=== PATIENT | female | born 1965 | race Caucasian/White ===

== ENCOUNTER 2019-03-25 05:26 | Emergency (ER) | payer BC, SELFPAY ==
[2019-03-25 05:27] VITALS: BP 180/82; PULSE 89; RESP 18; TEMP 36.7; O2SAT 100; BMI 36.5
--- NOTE | 2019-03-25 05:33 | ED.VIS.GEN ---
History of Present Illness Chief Complaint: Allergic Reaction Informant: Patient Narrative: Stated she has a severe wheat allergy as well as gluten hypersensitivity. She thinks the holiday dinners cross contaminated food. Since last night she has been feeling nauseous. She has had some diarrhea. Patient stated that she thinks her lips are slightly big. She took some Pepcid last night. She took Benadryl twice including when she woke up this morning approximately an hour ago. She is not having any difficulty breathing. She has had this happen before. Current severity is mild. Past Medical History - Allergies and Home Meds Allergies/Adverse Reactions: Allergies erythromycin base Allergy (Verified 03/25/19 05:32) Hives Sulfa (Sulfonamide Antibiotics) Allergy (Verified 03/25/19 05:32) Hives wheat Allergy (Verified 03/25/19 05:31) Swelling Primary Care Physician: Noelle Shelton MD [Primary Care Provider] - Prior records reviewed: Yes Past Medical History: - - Gluten hypersensitivity Surgical History: noncontributory Lives: With Family Smoking Status: Never smoker Alcohol: None Drugs: None Review of Systems General: Denies: Chills, Fever, Sweats Eyes: Denies: Visual changes - bilaterally, Diplopia ENT: Denies: Rhinorrhea, Sore throat Cardiovascular: Denies: Chest pain, Palpitations Respiratory: Denies: Dyspnea, Cough, Dyspnea on exertion Gastrointestinal: Reports: Nausea, Diarrhea. Denies: Abdominal pain, Vomiting, Melena, Hematochezia Genitourinary: Denies: Dysuria, Hematuria, Frequency Musculoskeletal: Denies: Back pain, Extremity Pain Skin: Denies: Rash, Wounds Neurological: Denies: Headache, Weakness, Numbness Physical Exam Vital Signs/Narrative: Vital Signs Temp Pulse Resp BP Pulse Ox 03/25/19 05:27 98.0 F 89 18 180/82 H 100 General: Well nourished, Well developed, No Acute Distress Head: Normocephalic, Atraumatic Eyes: Perrl, EOMI ENT: Moist mucous membranes, No rhinorrhea Neck: Supple, Nontender Cardiovascular: Regular rate, Regular rhythm, No murmurs Respiratory: No distress, CTA bilaterally, Chest nontender Abdomen: Soft, Nontender, Nondistended, Normal bowel sounds Back: Nontender, Normal Inspection Extremities: Nontender, No edema Skin: Normal color, No rash Neurological: Alert, Oriented x3, Cranial nerves II-XII grossly intact, Normal Strength, Normal Sensation Psychological: Normal affect, Normal Mood Diagnostic/Tx/Re-eval - Medical Decision Making Patient is having a mild reaction in my opinion to wheat or gluten. Given Zofran. She already took Benadryl and Pepcid lungs are clear without wheezing. She is having no respiratory difficulty. I do not feel she needs a breathing treatment or epinephrine. Patient felt much better after treatment. Given Zofran for nausea and time. She will be discharged with Zofran and will continue to monitor ED Disposition - Plan for ED Patient: Disposition: Home or Assisted Living Diagnosis: Food allergy Instructions: ALLERGIC REACTION, Other (General) Prescriptions: Ondansetron [Zofran Odt] 4 mg PO Q8H PRN PRN #10 tab PRN Reason: Nausea Prescription Printed Referrals: Noelle Shelton MD [Primary Care Provider] -
[2019-03-25] MEDS: Ondansetron ODT 4 MG Tablet 8 MG PO ×2 (05:38→06:58)
[2019-03-25 05:40] VITALS: BP 161/80
[2019-03-25 07:00] VITALS: BP 138/72; PULSE 78; RESP 16; O2SAT 97
== END 2019-03-25 07:01 | disposition home or self-care (01) ==
PROVIDERS: Emergency Provider Emergency Medicine; Family Provider Internal Medicine; PCP Internal Medicine
DX: T78.1XXA Other adverse food reactions, not elsewhere classified, initial encounter (principal); R11.0 Nausea; X58.XXXA Exposure to other specified factors, initial encounter
CPT/HCPCS: 99283

== ENCOUNTER 2021-03-19 16:39 | Outpatient (CLI) | payer BC, SELFPAY ==
[2021-03-19 16:50] VITALS: BP 157/87; PULSE 92; RESP 16; TEMP 36.8; O2SAT 100; BMI 34.9
[2021-03-19] MEDS: 0.9% Saline Lock 10 ML Syringe IV (16:53)
[2021-03-19 17:25] VITALS: BP 145/81; PULSE 82; RESP 16; TEMP 37; O2SAT 100
[2021-03-19 18:25] VITALS: BP 132/63; PULSE 80; RESP 16; TEMP 36.9; O2SAT 100
== END 2021-03-19 18:43 | disposition home or self-care (01) ==
LOC: MS3OUT 16:40 → MS3 16:40
PROVIDERS: PCP Internal Medicine; Referring Provider Nurse Practitioner Adult Health; Visit Provider Nurse Practitioner Adult Health
DX: Z23 Encounter for immunization (principal); U07.1 COVID-19
CPT/HCPCS: J7050; M0245; Q0245; A4216

== ENCOUNTER 2021-08-17 19:32 | Emergency (ER) | payer BC, SELFPAY ==
[2021-08-17 19:33] VITALS: BP 156/83; PULSE 94; RESP 16; TEMP 37.2; O2SAT 99; BMI 34.4
--- NOTE | 2021-08-17 19:45 | EKG12_ITS ---
Test Reason : PALPITATIONS Blood Pressure : / mmHG Vent. Rate : 088 BPM Atrial Rate : 088 BPM P-R Int : 178 ms QRS Dur : 134 ms QT Int : 406 ms P-R-T Axes : 045 -47 037 degrees QTc Int : 491 ms Normal sinus rhythm Right bundle branch block Left anterior fascicular block Bifascicular block Voltage criteria for left ventricular hypertrophy Abnormal ECG Confirmed by MATEO MATA, GERI ([id number]), video tape editor RAYMOND HALL ([id number]) on 08/19/2021 1:05:14 PM Referred By: FERNANDA Confirmed By:GERI GALINDO MD
[2021-08-17 20:00] VITALS: BP 168/92; PULSE 89; RESP 14; O2SAT 98
--- NOTE | 2021-08-17 20:15 | EX.ED.DYSGE1 ---
HPI History of Present Illness Chief Complaint: Palpitations Informant: patient Onset/Context/Timing Onset: Yesterday Context: Gradual Onset Timing: Waxes and wanes Quality: Racing, pounding Location: Chest Worsened by: Nothing Relieved by: Nothing Narrative Narrative: Patient presents with palpitations that have been waxing and waning throughout the day today. Patient states it actually began last night. Patient states she feels her heart is racing and pounding at times. Patient states nothing makes it better nothing makes it worse. Patient admits to recent travel to [place] in [place] where she did a lot of walking. Patient denies any shortness of breath or cough. Patient denies any fevers or chills a COVID-19 test at home today which was negative. [facility] Medical History (Updated 08/17/21 @ 22:[address] Eben Jesus, ) Cardiomyopathy Diabetes Hypertension Home Medications Coreg 1.5 tab PO BID 05/15/13 [History Last Taken Unknown] levothyroxine 100 mcg PO DAILY 05/15/13 [History Last Taken Unknown] metformin 500 mg PO TIDCM 05/15/13 [History Last Taken Unknown] Omeprazole [Prilosec] 40 mg PO BID 08/07/14 [History Last Taken Unknown] Propylene Glycol/Peg 400/Pf [Systane Ultra 0.4-0.3% Eye Drp] 1 drp EACH EYE PRN PRN 08/07/14 [History Last Taken Unknown] calcium carbonate 500 mg PO DAILY@0800 08/07/14 [History Last Taken Unknown] cholecalciferol (vitamin D3) [Vitamin D3] 2,000 unit PO DAILY 08/07/14 [History Last Taken Unknown] furosemide 20 mg PO DAILY PRN 08/07/14 [History Last Taken Unknown] lorazepam 0.5 mg PO DAILY PRN 08/07/14 [History Last Taken Unknown] ofloxacin 2 drp OTIC (EAR) 4X/DAY PRN 08/07/14 [History Last Taken Unknown] potassium chloride [K-Dur] 20 meq PO DAILY 08/07/14 [History Last Taken Unknown] ramipril 1.25 mg PO DAILY 08/07/14 [History Last Taken Unknown] tizanidine 2 mg PO Q8H 08/07/14 [History Last Taken Unknown] ondansetron 4 mg PO Q8H PRN PRN #10 tab 03/25/19 [Rx Last Taken Unknown] albuterol 180 mcg INHALATION Q4H PRN 03/19/21 [History Last Taken Unknown] epinephrine [Epi E-Z Pen] 0.3 mg IM Q4H PRN 03/19/21 [History Last Taken Unknown] ergocalciferol (vitamin D2) [Vitamin D2] 1,250 mcg PO QWEEK 03/19/21 [History Last Taken Unknown] ferrous gluconate 324 mg PO DAILY 03/19/21 [History Last Taken Unknown] hydroxyzine HCl 25 mg PO Q6H PRN 03/19/21 [History Last Taken Unknown] magnesium 30 mg PO BID 03/19/21 [History Last Taken Unknown] pantoprazole 40 mg PO DAILY 03/19/21 [History Last Taken Unknown] Allergy/AdvReac Type Severity Reaction Status Date / Time nut - unspecified Allergy Severe Anaphylaxis Verified 08/17/21 19:33 barley Allergy Food Verified 08/17/21 19:33 Allergy erythromycin base Allergy Hives Verified 08/17/21 19:33 gluten Allergy Food Verified 08/17/21 19:33 Allergy green pepper Allergy Food Verified 08/17/21 19:33 Allergy kiwi Allergy Food Verified 08/17/21 19:33 Allergy latex Allergy unknown Verified 08/17/21 19:33 pecan nut Allergy Food Verified 08/17/21 19:33 Allergy pineapple Allergy Food Verified 08/17/21 19:33 Allergy Sulfa (Sulfonamide Allergy Hives Verified 08/17/21 19:33 Antibiotics) sulfamethoxazole Allergy Angioedema Verified 08/17/21 19:33 [From Bactrim] trimethoprim [From Bactrim] Allergy Angioedema Verified 08/17/21 19:33 walnut Allergy Food Verified 08/17/21 19:33 Allergy watermelon Allergy Food Verified 08/17/21 19:33 Allergy wheat Allergy Swelling Verified 08/17/21 19:33 rye Allergy Food Uncoded 08/17/21 19:33 Allergy sorgum Allergy Hives Uncoded 08/17/21 19:33 Surgical History (Updated 08/17/21 @ 20:[address] Eben Jesus, DO) H/O bilateral mastectomy H/O section Hx of cholecystectomy Hx of thyroidectomy Social History Smoking Status: Never smoker ROS ROS ED Constitutional Constitutional ED: Denies chills or fever(s) Eyes Eyes: Denies blurry vision or change in vision ENT ENT ED: Denies rhinorrhea or sore throat Cardiovascular Cardiovascular: Denies chest pain or palpitations Respiratory/Chest Respiratory/Chest: Denies cough or dyspnea Gastrointestinal Gastrointestinal: Denies nausea or vomiting Genitourinary Genitourinary ED: Denies dysuria or hematuria Musculoskeletal Musculoskeletal: Denies back pain or neck pain Integumentary Denies abscess or rash Neurologic Neurologic: Denies headache(s) or weakness Allergic/Immunologic Allergic/Immunologic ED: Denies mouth swelling or urticaria EXAM Physical Exam Const Vital Signs: 08/17/21 19:33 08/17/21 19:50 Temperature 98.9 F Temperature Source Temporal Pulse Rate 94 Respiratory Rate 16 Respiratory Effort Normal Non-Labored Respiratory Pattern Normal Blood Pressure 156/83 H Blood Pressure Mean 107 Pulse Ox 99 Oxygen Delivery Method Room Air Positive well nourished and well developed General Appearance ED: well developed HEENT Reports moist mucous membranes Neck supple and no JVD Resp normal respiratory effort and clear to auscultation bilaterally Cardio regular rate, regular rhythm and no murmurs GI normal to inspection, nondistended, normoactive bowel sounds and non-tender Palpation: soft Extremity General Extremety ED: Yes edema; Negative for tenderness General Extremity: edema Neuro oriented x3, CN's II-XII intact bilaterally and no sensory deficits noted Sensorium / Orientation: alert Motor Exam: strength 5/5 throughout Psych mental status grossly normal Skin no rashes or lesions noted MDM MDM MDM Narrative Medical decision making narrative: EKG was obtained. On my interpretation shows normal sinus rhythm with a rate of 88. There is a right bundle branch block pattern noted. There is a left anterior fascicular block pattern noted. There is left axis deviation -47. There are no acute ST or T wave changes. Portable 1 view chest x-ray was obtained. On my interpretation, lung denny are clear. There is normal cardiac silhouette. Bony thorax is normal. There is no acute process noted. Radiologist also interpreted the x-ray and agrees. CBC was within normal limits. Comprehensive metabolic profile was essentially within normal limits. High-sensitivity troponin was less than 3. D-dimer was elevated at 1.36. Because of this, CTA of the chest was obtained. There is no evidence of pulmonary embolism or aortic dissection. This was interpreted by the radiologist and reviewed by myself. Lab Data Attestation: I reviewed the patient's lab results. Labs: Laboratory Results - last 24 hr 08/17/21 08/17/21 08/17/21 20:10 20:10 20:10 WBC 4.6 RBC 4.00 L Hgb 11.5 L Hct 35.0 L MCV 87.5 MCH 28.8 MCHC 32.9 RDW Std Deviation 43.1 RDW Coeff of Fannie 13.4 Plt Count 128 L MPV 9.9 Immature Gran % (Auto) 0.200 Neut % (Auto) 72.2 H Lymph % (Auto) 19.1 Whitman % (Auto) 6.6 Eos % (Auto) 1.5 Baso % (Auto) 0.4 Absolute Neuts (auto) 3.3 Absolute Lymphs (auto) 0.87 Nucleated RBC % 0 D-Dimer Quant (PE/DVT) 1.36 H* Sodium 141 Potassium 3.8 Chloride 109 H Carbon Dioxide 26.0 Anion Gap 6 BUN 9 Creatinine 0.74 Estim Creat Clear Calc 65.54 Est GFR (MDRD) Af Amer 103 Est GFR (MDRD) Non-Af 85 BUN/Creatinine Ratio 12.1 Glucose 110 H Calcium 9.0 Total Bilirubin 0.60 AST 32 ALT 39 Alkaline Phosphatase 69 Troponin I High Sens < 3 L Total Protein 7.6 Albumin 3.5 Globulin 4.1 Albumin/Globulin Ratio 0.9 Radiography Chest X-Ray - ED: 1 View, Read by ED Physician, Read by Radiologist and No Acute Disease Diagnostic Testing: Clinical Impression(s) from Imaging Studies Chest X-Ray 08/17/21 20:25 IMPRESSION: No radiographic evidence of acute cardiopulmonary disease. Electronically Signed: Adelso Carranza MD at 20:51 EDT Reading Location ID and State: [facility] / [place] Tel , Service support , Chest CTA 08/17/21 20:51 IMPRESSION: Normal CTA chest examination, without a demonstrated pulmonary embolism or arterial dissection. Patchy bilateral airspace disease consistent with infection including atypical or viral pneumonia in the appropriate clinical setting. Electronically Signed: Adelso Carranza MD at 21:44 EDT Reading Location ID and State: [facility] / [place] Tel , Service support , EKG Initial EKG: Attestation: I personally reviewed and interpreted this EKG as follows: Interpretation: Sinus Rhythm (88), No Acute Injury Pattern, RBBB and LBBB Prior EKG tracings: not available for review Prior: No Prior Discharge Plan Triage Chief Complaint: Palpitations ED Provider: Eben Jesus Dx/Rx/DC Orders Clinical Impression: Chest pain, Heart palpitations Instructions: ED Chest Pain, Uncertain Cause, ED Palpitations Prescriptions: No Action metformin 500 MG tablet 500 mg PO TIDCM RF: 0 levothyroxine 100 MCG tablet 100 mcg PO DAILY RF: 0 Coreg 1.5 tab PO BID RF: 0 tizanidine 2 MG tablet 2 mg PO Q8H RF: 0 ofloxacin 1 DROP bottle 2 drp otic (ear) 4X/DAY PRN (Reason: other) RF: 0 potassium chloride [Klor-Con M20] 20 MEQ tablet 20 meq PO DAILY RF: 0 lorazepam 0.5 MG tablet 0.5 mg PO DAILY PRN (Reason: Anxiety) RF: 0 calcium carbonate 500 MG tablet 500 mg PO DAILY@0800 RF: 0 furosemide 20 MG tablet 20 mg PO DAILY PRN (Reason: swelling) RF: 0 ramipril 1.25 MG capsule 1.25 mg PO DAILY RF: 0 cholecalciferol (vitamin D3) [Vitamin D3] 1,000 UNIT tablet 2,000 unit PO DAILY RF: 0 Omeprazole [Prilosec] 40 MG capsule 40 mg PO BID RF: 0 Propylene Glycol/Peg 400/Pf [Systane Ultra 0.4-0.3% Eye Drp] 1 EACH [place] 1 drp Each Eye PRN PRN (Reason: Dry Eye) RF: 0 ondansetron 4 MG tablet 4 mg PO Q8H PRN PRN (Reason: Nausea) Qty: 10 RF: 0 pantoprazole 40 mg Tablet,Delayed Release (Dr/Ec) 40 mg PO DAILY RF: 0 hydroxyzine HCl 25 mg Tablet 25 mg PO Q6H PRN (Reason: Itching) RF: 0 albuterol 90 mcg/actuation Aerosol 180 mcg inhalation Q4H PRN (Reason: Shortness Of Breath) RF: 0 ergocalciferol (vitamin D2) [Vitamin D2] 1,250 mcg (50,000 unit) Capsule 1,250 mcg PO QWEEK RF: 0 epinephrine [Epi E-Z Pen] 0.3 mg/0.3 mL Auto-Injector 0.3 mg IM Q4H PRN (Reason: Anaphylaxis) RF: 0 magnesium 30 mg Tablet 30 mg PO BID RF: 0 ferrous gluconate 324 mg (37.5 mg iron) Tablet 324 mg PO DAILY RF: 0 Primary Care Provider: Noelle Shelton Referrals: Noelle Shelton MD [Primary Care Provider] - 3-5 Days Disposition Disposition: Home, Self Care
--- NOTE | 2021-08-17 20:25 | RAD_ITS ---
INDICATION: Chest pain EXAMINATION/TECHNIQUE: X-RAY - portable upright AP chest x-ray COMPARISON: None. FINDINGS: LINES/DEVICES: None. LUNGS: No consolidation, edema or effusion. No pneumothorax. MEDIASTINUM AND CARDIOVASCULAR STRUCTURES: Normal cardiac silhouette. Multiple calcified left paratracheal and hilar lymph nodes. BONES AND SOFT TISSUES: Unremarkable. RAD/Chest 1 View (Portable) IMPRESSION: No radiographic evidence of acute cardiopulmonary disease. Electronically Signed: Adelso Carranza MD at 20:51 EDT ,
[2021-08-17 20:31] LABS: Absolute Lymphocyte Count 0.87 X10^3/uL (0.83-4.51); Absolute Neutrophil Count 3.3 X10^3/uL (2.0-7.7); Basophil# 0.02 X10^3/uL; Basophil% 0.4 % (0-1); Eosinophil# 0.07 X10^3/uL; Eosinophils% 1.5 % (0-5); Hemoglobin 11.5 g/dL (12.0-15.0); Lymphocyte # 0.87 X10^3/ul (0.83-4.51); Lymphocyte % 19.1 % (19-41); Mean Corp Hgb Conc 32.9 g/dL (32-36); Mean Corpuscular Hgb 28.8 pg (27.0-32.0); Mean Corpuscular Volume 87.5 fL (81-99); Mean Platelet Vol. 9.9 fl (6.2-12.0); Monocyte% 6.6 % (0-10); NRBC Flagged by Analyzer 0 % (0-5); Neutrophil # 3.29 X10^3/uL (2.7-7.7); Neutrophil % 72.2 % (47-70); Platelet Count 128 K/mm3 (150-450); RBC Distribution Width CV 13.4 % (11.6-14.6); RBC Distribution Width SD 43.1 fl (35.1-43.9); White Blood Count 4.6 K/mm3 (4.4-11.0)
[2021-08-17 20:44] LABS: D-Dimer Quantitative (DVT/PE) 1.36 FEU/ug/m (0.27-0.49)
[2021-08-17 20:49] LABS: ALB/GLOB Ratio 0.9 RATIO (0.9-2.4); AST(SGOT) 32 U/L (15-37); Alanine Aminotransfer ALT/SGPT 39 U/L (13-56); Albumin, Serum 3.5 g/dL (3.2-5.0); Alkaline Phosphatase 69 U/L (45-117); Anion Gap 6 (5-15); BUN 9 mg/dL (7-18); BUN/Creat Ratio 12.1 RATIO (10-20); Chloride 109 mmol/L (98-107); Creatinine, Serum 0.74 mg/dL (0.55-1.02); EST Glomerular Filtration Rate 85 mL/min (>60); Est Glom Filt Rate - Afr Amer 103 mL/min (>60); Estimated Creatinine Clearance 65.54 ml/min; Globulin 4.1 g/dL (2.2-4.2); Glucose 110 mg/dL (74-106); Potassium 3.8 mmol/L (3.5-5.1); Protein, Total 7.6 g/dL (6.4-8.2); Sodium Level 141 mmol/L (136-145); Troponin-I HS < 3 pg/mL (3.0-54.0)
--- NOTE | 2021-08-17 20:51 | CT_ITS ---
STUDY: CTA CHEST REASON FOR EXAM: Female, 56 years old. Palpitations, elevated d-dimer, history of thyroid, breast cancer and Hodgkin''s lymphoma RADIATION DOSAGE (If Supplied By Facility): CTDIvol = ( 12.83 ) mGy, DLP = ( 370.59 ) mGycm TECHNIQUE: The examination was performed with the intravenous administration of 75mL Isovue-370. Post-processing of the angiographic images was performed, with multiplanar reformation and 3D reconstruction. Individualized dose optimization techniques were used for this CT. COMPARISON: None. FINDINGS: Normal enhancement of the main pulmonary artery and right and left pulmonary arteries. Normal enhancement of the bilateral peripheral pulmonary arteries. There is no demonstrated pulmonary embolism. No aortic aneurysm. There is no demonstrated aortic dissection. Normal heart and pericardium. Multiple calcified left paratracheal and mediastinal lymph nodes. Normal hilar regions. Fluid column in the thoracic esophagus. Normal visualized trachea and bronchi. Patchy airspace opacities in the bilateral upper, right middle lobes, superior segment left lower lobe. There are no pleural effusions. The patient is status post bilateral mastectomies. Normal osseous structures. There are surgical clips in the gallbladder fossa consistent with a prior cholecystectomy. CT/CTA Chest W/WO Contrast IMPRESSION: Normal CTA chest examination, without a demonstrated pulmonary embolism or arterial dissection. Patchy bilateral airspace disease consistent with infection including atypical or viral pneumonia in the appropriate clinical setting. Electronically Signed: Adelso Carranza MD at 21:44 EDT ,
[2021-08-17 21:00] VITALS: BP 106/74; PULSE 88; RESP 13; O2SAT 98
[2021-08-17 22:00] VITALS: BP 143/85; PULSE 86; RESP 15; O2SAT 98
[2021-08-17 23:07] VITALS: BP 145/89; PULSE 85; RESP 15; O2SAT 96
== END 2021-08-17 23:08 | disposition home or self-care (01) ==
PROVIDERS: Emergency Provider Emergency Medicine; PCP Internal Medicine; Visit Provider Emergency Medicine
DX: R07.9 Chest pain, unspecified (principal); I42.9 Cardiomyopathy, unspecified; E11.9 Type 2 diabetes mellitus without complications; R00.2 Palpitations; I45.2 Bifascicular block; I10 Essential (primary) hypertension
CPT/HCPCS: 71045; 71275; 80053; 84484; 85025; 85379; 93005; 99285; Q9967; A4216

== ENCOUNTER 2022-09-24 11:21 | Emergency (ER) | payer BC, SELFPAY ==
[2022-09-24 11:21] VITALS: BP 120/72; PULSE 103; RESP 20; TEMP 36.2; O2SAT 97; BMI 36.1
--- NOTE | 2022-09-24 11:49 | EKG12_ITS ---
Test Reason : PALPS Blood Pressure : / mmHG Vent. Rate : 091 BPM Atrial Rate : 091 BPM P-R Int : 176 ms QRS Dur : 134 ms QT Int : 398 ms P-R-T Axes : 041 -52 010 degrees QTc Int : 489 ms Normal sinus rhythm Right bundle branch block Left anterior fascicular block Bifascicular block Minimal voltage criteria for LVH, may be normal variant ( R in aVL ) Abnormal ECG Confirmed by MATEO MATA, GERI ([id number]), health editor RAYMOND HALL ([id number]) on 09/25/2022 10:39:36 AM Referred By: LOIS/ALLYSSA Confirmed By:GERI GALINDO MD
--- NOTE | 2022-09-24 11:50 | EX.ED.DYSGE1 ---
HPI History of Present Illness Chief Complaint: Palpitations Informant: patient Narrative Narrative: Patient has had URI symptoms of nonproductive cough, congestion, fevers up to 103 for the last 3 or so days, and just before this started she rode in a car to and from [place] for a family function. This has made her legs more swollen than usual, she has chronic asymmetry with more swelling on the right than the left, and chronic edema. She also has a history of Adriamycin-induced cardiomyopathy. This morning, she had 5 or 6 episodes of racing palpitations that made her feel lightheaded but not syncopal, each 1 lasted less than a minute. She is never had this before. She denies any dyspnea, with or without the palpitations, chest tightness or heaviness also with or without the palpitations. She denies any pleuritic symptoms. [facility] Medical History Cardiomyopathy Diabetes Hypertension Home Medications Coreg 1.5 tab PO BID 05/15/13 [History Last Taken Unknown] levothyroxine 100 mcg tablet 100 mcg PO DAILY 05/15/13 [History Last Taken Unknown] metformin 500 mg tablet 500 mg PO TIDCM 05/15/13 [History Last Taken Unknown] Omeprazole [Prilosec] 40 mg PO BID 08/07/14 [History Last Taken Unknown] Propylene Glycol/Peg 400/Pf [Systane Ultra 0.4-0.3% Eye Drp] 1 drp PRN PRN Dry Eye 08/07/14 [History Last Taken Unknown] calcium carbonate 200 mg calcium (500 mg) chewable tablet 500 mg PO DAILY@0800 08/07/14 [History Last Taken Unknown] cholecalciferol (vitamin D3) 25 mcg (1,000 unit) tablet (Vitamin D3) 2,000 unit PO DAILY 08/07/14 [History Last Taken Unknown] furosemide 20 mg tablet 20 mg PO DAILY PRN swelling 08/07/14 [History Last Taken Unknown] lorazepam 0.5 mg tablet 0.5 mg PO DAILY PRN Anxiety 08/07/14 [History Last Taken Unknown] ofloxacin 0.3 % ear drops 2 drp otic (ear) 4X/DAY PRN other 08/07/14 [History Last Taken Unknown] potassium chloride 20 mEq tablet,extended release(part/cryst) (PricillaCon M) 20 meq PO DAILY 08/07/14 [History Last Taken Unknown] ramipril 1.25 mg capsule 1.25 mg PO DAILY 08/07/14 [History Last Taken Unknown] tizanidine 2 mg tablet 2 mg PO Q8H 08/07/14 [History Last Taken Unknown] ondansetron 4 mg disintegrating tablet 4 mg PO Q8H PRN PRN Nausea #10 tabs 03/25/19 [Rx Last Taken Unknown] albuterol 90 mcg/actuation aerosol inhaler 180 mcg inhalation Q4H PRN Shortness Of Breath 03/19/21 [History Last Taken Unknown] epinephrine 0.3 mg/0.3 mL injection, auto-injector 0.3 mg IM Q4H PRN Anaphylaxis 03/19/21 [History Last Taken Unknown] ergocalciferol (vitamin D2) 1,250 mcg (50,000 unit) capsule (Vitamin D2) 1,250 mcg PO QWEEK 03/19/21 [History Last Taken Unknown] ferrous gluconate 324 mg (37.5 mg iron) tablet 324 mg PO DAILY 03/19/21 [History Last Taken Unknown] hydroxyzine HCl 25 mg tablet 25 mg PO Q6H PRN Itching 03/19/21 [History Last Taken Unknown] magnesium 30 mg tablet 30 mg PO BID 03/19/21 [History Last Taken Unknown] pantoprazole 40 mg tablet,delayed release 40 mg PO DAILY 03/19/21 [History Last Taken Unknown] Allergy/AdvReac Type Severity Reaction Status Date / Time nut - unspecified Allergy Severe Anaphylaxis Verified 09/24/22 11:34 barley Allergy Food Verified 09/24/22 11:34 Allergy retana pepper [green pepper] Allergy Food Verified 09/24/22 11:34 Allergy erythromycin base Allergy Hives Verified 09/24/22 11:34 gluten Allergy Food Verified 09/24/22 11:34 Allergy grass pollen Allergy Hives Verified 09/24/22 11:34 grass pollen-perennial rye, Allergy Other Verified 09/24/22 11:34 standar kiwi Allergy Food Verified 09/24/22 11:34 Allergy latex Allergy unknown Verified 09/24/22 11:34 pecan nut Allergy Food Verified 09/24/22 11:34 Allergy pineapple Allergy Food Verified 09/24/22 11:34 Allergy Sulfa (Sulfonamide Allergy Hives Verified 09/24/22 11:34 Antibiotics) sulfamethoxazole Allergy Angioedema Verified 09/24/22 11:34 [From Bactrim] trimethoprim [From Bactrim] Allergy Angioedema Verified 09/24/22 11:34 walnut Allergy Food Verified 09/24/22 11:34 Allergy watermelon Allergy Food Verified 09/24/22 11:34 Allergy wheat Allergy Swelling Verified 09/24/22 11:34 Surgical History H/O bilateral mastectomy H/O section Hx of cholecystectomy Hx of thyroidectomy Social History Smoking Status: Never smoker ROS ROS ED Constitutional Constitutional ED: Reports fever(s) and malaise; Denies chills Eyes Eyes: Denies change in vision or diplopia ENT ENT ED: Reports nasal congestion; Denies ear pain, headache(s), rhinorrhea or sore throat Cardiovascular Cardiovascular: Reports leg edema, palpitations and racing heartbeat; Denies chest pain, orthopnea or paroxysmal nocturnal dyspnea Respiratory/Chest Respiratory/Chest: Reports cough; Denies dyspnea, orthopnea, paroxysmal nocturnal dyspnea or sputum Gastrointestinal Gastrointestinal: Denies abdominal pain, diarrhea, nausea or vomiting Genitourinary Genitourinary ED: Denies dysuria or hematuria Musculoskeletal Musculoskeletal: Denies back pain or neck pain Integumentary Denies abscess or rash Neurologic Neurologic: Denies headache(s), paresthesias or weakness Psychiatric Psychiatric: Denies anxiety or suicidal thoughts EXAM Physical Exam Const Vital Signs: 09/24/22 11:21 09/24/22 13:34 09/24/22 13:34 Temperature 97.1 F L Temperature Source Temporal Pulse Rate 103 H 85 Respiratory Rate 20 H 15 Blood Pressure 120/72 Blood Pressure Mean 88 Pulse Ox 97 Oxygen Delivery Method Room Air Room Air 09/24/22 13:37 Temperature Temperature Source Pulse Rate 85 Respiratory Rate 16 Blood Pressure Blood Pressure Mean Pulse Ox 96 Oxygen Delivery Method Positive well nourished and well developed General Appearance ED: well developed and NAD HEENT Reports moist mucous membranes normocephalic and atraumatic Eyes PERRL and EOMs intact bilaterally Neck full ROM, no lymphadenopathy and supple Resp normal respiratory effort and clear to auscultation bilaterally Cardio regular rate, regular rhythm and peripheral pulses 2+ throughout Rate: Negative for tachycardic Heart Sounds: murmur systolic III/ crescendo-decrescendo left sternal border GI non-tender and non-distended Auscultation: normoactive bowel sounds Palpation: soft Back/Spine no CVA tenderness General Back: other FROM Extremity normal to inspection General Extremety ED: Yes edema; Negative for pulses abnormal or tenderness General Extremity: edema bilateral lower extremity Details: moderate (Worse on right, chronic per patient. No calf tenderness.); Negative for pulses abnormal Neuro oriented x3, CN's II-XII intact bilaterally and no sensory deficits noted Sensorium / Orientation: awake and alert Motor Exam: strength 5/5 throughout Skin no rashes or lesions noted and no wounds MDM MDM MDM Narrative Medical decision making narrative: Obtained labs, EKG, troponin, BNP, as well as a D-dimer. She is a little anemic at 10.7 hemoglobin, her D-dimer is nonspecifica elevated, so we are not able to rule out PE without a CTA of the chest which was obtained. It shows no pulmonary embolus. I reviewed the images and the report and I agree with that. Incidental such as hiatal hernia were noted and discussed with the patient she already knew about that. While being monitored here in the emergency department, she states she did have 1 episode of palpitations that lasted less than 30 seconds, however unfortunately she was not hooked up to the monitor by nursing yet. She feels fine. I offered extended observation and she would like to be observed here on the monitor for a while longer, she declines and prefers to go home with a Holter monitor if we have one available, we do have a 24-hour 1 but not a 48. We will place this on her and have her follow-up with her dobby loom weaver and results will go to him. Given all this I think this sounds low risk at this time, does not sound high likelihood/risk for V. tach/ventricular fibrillation right now, as we discussed with her and she is comfortable going home with this. She is not in acute congestive heart failure at this time without pulmonary edema, sounding wet, or an elevated BNP. Lab Data Attestation: I reviewed the patient's lab results. Labs: Laboratory Results - last 24 hr 09/24/22 12:00 WBC 3.3 L RBC 3.85 L Hgb 10.7 L Hct 33.7 L MCV 87.5 MCH 27.8 MCHC 31.8 L RDW Std Deviation 47.3 H RDW Coeff of Fannie 14.6 Plt Count 94 L MPV 10.4 Immature Gran % (Auto) 0.300 Neut % (Auto) 69.8 Lymph % (Auto) 19.2 [place] % (Auto) 9.8 Eos % (Auto) 0.6 Baso % (Auto) 0.3 Absolute Neuts (auto) 2.3 Absolute Lymphs (auto) 0.63 L Nucleated RBC % 0 D-Dimer Quant (PE/DVT) 1.52 H* Sodium 137 Potassium 3.6 Chloride 106 Carbon Dioxide 25.0 Anion Gap 6 BUN 7 Creatinine 0.88 Estim Creat Clear Calc 54.44 Est GFR (MDRD) Af Amer 84 Est GFR (MDRD) Non-Af 70 BUN/Creatinine Ratio 7.9 L Glucose 147 H Calcium 8.4 L Troponin I High Sens 6 B-Natriuretic Peptide 74.0 Radiography Chest X-Ray - ED: 1 View, Read by ED Physician, No Acute Disease and No Infiltrates Diagnostic Testing: Clinical Impression(s) from Imaging Studies Chest X-Ray 09/24/22 12:10 IMPRESSION: No acute abnormality is seen. Stable examination. Electronically Signed: Sagar Ochoa MD at 12:19 EDT , Chest CTA 09/24/22 13:00 IMPRESSION: No demonstrated pulmonary embolism or arterial dissection. Hiatal hernia. Retained fluid within the esophagus may be secondary to dysmotility and/or reflux. Atherosclerosis. Stable minimal bilateral scarring. Stable calcified mediastinal lymph nodes. Electronically Signed: Mariana Das MD at 13:26 EDT , Rhythm Strip Rhythm Strip: Sinus Rhythm Rate: 90 Ectopy: None EKG Initial EKG: Attestation: I personally reviewed and interpreted this EKG as follows: Interpretation: Sinus Rhythm, No Acute Injury Pattern, RBBB and LAFB Prior EKG tracings: available for review Prior: Unchanged Discharge Plan Triage Chief Complaint: Palpitations Other Complaint: Edema ED Provider: Gregg Parsons Dx/Rx/DC Orders Clinical Impression: Intermittent palpitations, History of cardiomyopathy Instructions: ED Palpitations Prescriptions: No Action metformin 500 MG tablet 500 mg PO TIDCM levothyroxine 100 MCG tablet 100 mcg PO DAILY Coreg 1.5 tab PO BID tizanidine 2 MG tablet 2 mg PO Q8H ofloxacin 1 DROP bottle 2 drp otic (ear) 4X/DAY PRN (Reason: other) potassium chloride [Klor-Con M20] 20 MEQ tablet 20 meq PO DAILY lorazepam 0.5 MG tablet 0.5 mg PO DAILY PRN (Reason: Anxiety) calcium carbonate 500 MG tablet 500 mg PO DAILY@0800 furosemide 20 MG tablet 20 mg PO DAILY PRN (Reason: swelling) ramipril 1.25 MG capsule 1.25 mg PO DAILY cholecalciferol (vitamin D3) [Vitamin D3] 1,000 UNIT tablet 2,000 unit PO DAILY Omeprazole [Prilosec] 40 MG capsule 40 mg PO BID Propylene Glycol/Peg 400/Pf [Systane Ultra 0.4-0.3% Eye Drp] 1 EACH [place] 1 drp Each Eye PRN PRN (Reason: Dry Eye) ondansetron 4 MG tablet 4 mg PO Q8H PRN PRN (Reason: Nausea) Qty: 10 0RF pantoprazole 40 mg Tablet,Delayed Release (Dr/Ec) 40 mg PO DAILY hydroxyzine HCl 25 mg Tablet 25 mg PO Q6H PRN (Reason: Itching) albuterol 90 mcg/actuation Aerosol 180 mcg inhalation Q4H PRN (Reason: Shortness Of Breath) ergocalciferol (vitamin D2) [Vitamin D2] 1,250 mcg (50,000 unit) Capsule 1,250 mcg PO QWEEK epinephrine [Epi E-Z Pen] 0.3 mg/0.3 mL Auto-Injector 0.3 mg IM Q4H PRN (Reason: Anaphylaxis) magnesium 30 mg Tablet 30 mg PO BID ferrous gluconate 324 mg (37.5 mg iron) Tablet 324 mg PO DAILY Primary Care Provider: Noelle Shelton Referrals: Farrowing Worker, your [Other] - As soon as possible (after turning in the monitor) Noelle Shelton MD [Primary Care Provider] -
--- NOTE | 2022-09-24 12:10 | RAD_ITS ---
STUDY: X-RAY CHEST REASON FOR EXAM: Female, 57 years old. Chest pain TECHNIQUE: Single AP portable view of the chest. COMPARISON: Comparison is made with prior study August 17, 2021. FINDINGS: The lungs are clear and expanded. There is no demonstrated pleural abnormality. Normal size heart. Stable calcified left-sided mediastinal lymph nodes. Calcified lymph nodes in the left supraclavicular region. Normal visualized pulmonary arteries. There is atherosclerotic tortuosity of the aortic arch and descending thoracic aorta. Normal visualized thoracic spine. Normal visualized ribs, clavicles, and shoulders. There is no demonstrated abnormality of the visualized soft tissue structures of the upper abdomen. RAD/Chest 1 View (Portable) IMPRESSION: No acute abnormality is seen. Stable examination. Electronically Signed: Sagar Ochoa MD at 12:19 EDT ,
[2022-09-24 12:23] LABS: Absolute Lymphocyte Count 0.63 X10^3/uL (0.83-4.51); Absolute Neutrophil Count 2.3 X10^3/uL (2.0-7.7); Basophil# 0.01 X10^3/uL; Basophil% 0.3 % (0-1); Eosinophil# 0.02 X10^3/uL; Eosinophils% 0.6 % (0-5); Hematocrit 33.7 % (37-47); Hemoglobin 10.7 g/dL (12.0-15.0); Lymphocyte # 0.63 X10^3/ul (0.83-4.51); Lymphocyte % 19.2 % (19-41); Mean Corp Hgb Conc 31.8 g/dL (32-36); Mean Corpuscular Hgb 27.8 pg (27.0-32.0); Mean Corpuscular Volume 87.5 fL (81-99); Mean Platelet Vol. 10.4 fl (6.2-12.0); Monocyte# 0.32 X10^3/uL; Monocyte% 9.8 % (0-10); NRBC Flagged by Analyzer 0 % (0-5); Neutrophil # 2.29 X10^3/uL (2.7-7.7); Neutrophil % 69.8 % (47-70); POSITIVE COUNT YES; Platelet Count 94 K/mm3 (150-450); RBC Distribution Width CV 14.6 % (11.6-14.6); RBC Distribution Width SD 47.3 fl (35.1-43.9); Red Blood Count 3.85 M/mm3 (4.2-5.4); White Blood Count 3.3 K/mm3 (4.4-11.0)
[2022-09-24 12:25] LABS: Differential Indicated SCAN CRITERIA MET
[2022-09-24 12:35] LABS: Anion Gap 6 (5-15); BUN 7 mg/dL (7-18); BUN/Creat Ratio 7.9 RATIO (10-20); Calcium,Total 8.4 mg/dL (8.5-10.1); Chloride 106 mmol/L (98-107); Creatinine, Serum 0.88 mg/dL (0.55-1.02); EST Glomerular Filtration Rate 70 mL/min (>60); Est Glom Filt Rate - Afr Amer 84 mL/min (>60); Estimated Creatinine Clearance 54.44 ml/min; Glucose 147 mg/dL (74-106); Potassium 3.6 mmol/L (3.5-5.1); Sodium Level 137 mmol/L (136-145); Troponin-I HS 6 pg/mL (3.0-54.0)
[2022-09-24 12:42] LABS: D-Dimer Quantitative (DVT/PE) 1.52 FEU/ug/m (0.27-0.49)
--- NOTE | 2022-09-24 13:00 | CT_ITS ---
STUDY: CTA CHEST REASON FOR EXAM: Female, 57 years old. Near syncope, elevated d-dimer RADIATION DOSAGE (If Supplied By Facility): CTDIvol = ( 11.20 ) mGy, DLP = ( 347.25 ) mGycm TECHNIQUE: The examination was performed with the intravenous administration of IV 100mL [id number]-300. Post-processing of the angiographic images was performed, with multiplanar reformation and 3D reconstruction. Individualized dose optimization techniques were used for this CT. COMPARISON: Prior study dated: August 17, 2021 FINDINGS: There is stable biapical scarring. There is stable minimal scarring throughout the lungs, most pronounced within the lower lobes. Normal enhancement of the main pulmonary artery and right and left pulmonary arteries. Normal enhancement of the bilateral peripheral pulmonary arteries. There is no demonstrated pulmonary embolism. Normal thoracic aorta and visualized great vessels. There is no demonstrated aortic dissection. There are calcifications of the coronary arteries. There is a grossly stable small pericardial effusion. There is partial calcification of the pericardium. There are stable calcified mediastinal lymph nodes. There is retained fluid within the esophagus. There is a hiatal hernia. Normal visualized trachea and bronchi. Normal chest wall structures. Normal osseous structures. Normal visualized upper abdomen. CT/CTA Chest W/WO Contrast IMPRESSION: No demonstrated pulmonary embolism or arterial dissection. Hiatal hernia. Retained fluid within the esophagus may be secondary to dysmotility and/or reflux. Atherosclerosis. Stable minimal bilateral scarring. Stable calcified mediastinal lymph nodes. Electronically Signed: Mariana Das MD at 13:26 EDT ,
[2022-09-24 13:34] VITALS: PULSE 85; RESP 15
[2022-09-24 13:37] VITALS: PULSE 85; RESP 16; O2SAT 96
[2022-09-24 14:00] VITALS: BP 134/76; PULSE 67; RESP 18; TEMP 36.4; O2SAT 99
== END 2022-09-24 14:13 | disposition home or self-care (01) ==
PROVIDERS: Emergency Provider Emergency Medicine; PCP Internal Medicine; Visit Provider Emergency Medicine
DX: R00.2 Palpitations (principal); I42.9 Cardiomyopathy, unspecified
CPT/HCPCS: 71045; 71275; 80048; 83880; 84484; 85025; 85379; 93005; 99284; Q9967; A4216

== ENCOUNTER → 2022-09-24 | Outpatient (CLI) | payer BC, SELFPAY | END | disposition home or self-care (01) | LOC: CVS 13:46 | PROVIDERS: PCP Internal Medicine; Referring Provider Internal Medicine; Visit Provider Emergency Medicine | DX: Z00.00 Encounter for general adult medical examination without abnormal findings (principal) ==

== ENCOUNTER 2024-02-22 13:10 | Inpatient (IN) | payer BC, SELFPAY ==
[2024-02-22] VITALS (38 sets, daily range): BP systolic 77–115; BP diastolic 48–89; PULSE 85–170; RESP 16–26; TEMP 36.4–36.9; O2SAT 91–100; BMI 31.9
[2024-02-22] MEDS: Pantoprazole Sodium 40 MG in 0.9% Normal Saline (100mL MB+) 100 ML 330 MG IV (13:43)
[2024-02-22] MEDS: 0.9% Normal Saline (1000mL) 1,000 ML 1000 ML IV (13:43)
[2024-02-22] MEDS: Metoprolol Tartrate 5 MG/5 ML Vial IV ×3 (14:00→15:13)
[2024-02-22 14:11] LABS: Hemoglobin 12.2 g/dL (12.0-15.0); Mean Corpuscular Volume 85.1 fL (81-99); Mean Platelet Vol. 9.4 fl (6.2-12.0); POSITIVE COUNT YES; POSITIVE MORPHOLOGY YES; Platelet Count 208 K/mm3 (150-450); RBC Distribution Width CV 15.4 % (11.6-14.6); RBC Distribution Width SD 47.6 fl (35.1-43.9); Red Blood Count 4.35 M/mm3 (4.2-5.4); White Blood Count 2.7 K/mm3 (4.4-11.0)
[2024-02-22 14:12] LABS: Differential Indicated MANUAL DIFF
[2024-02-22 14:20] LABS: International Normalized Ratio 3.1; Partial Thromboplast Time 25.9 Seconds (24.1-36.2); Prothrombin Time (Protime)PT. 31.9 SECONDS (11.7-14.9)
[2024-02-22 14:34] LABS: Lactic Acid 3.3 mmol/L (0.4-1.9)
[2024-02-22 14:35] LABS: AST(SGOT) 49 U/L (15-37); Alanine Aminotransfer ALT/SGPT 32 U/L (13-56); Albumin, Serum 2.3 g/dL (3.2-5.0); Alkaline Phosphatase 451 U/L (45-117); Anion Gap 12 (5-15); BUN 39 mg/dL (7-18); BUN/Creat Ratio 39.4 RATIO (10-20); Bilirubin, Direct 0.52 mg/dL (0.00-0.30); Calcium,Total 8.2 mg/dL (8.5-10.1); Chloride 92 mmol/L (98-107); Creatinine, Serum 0.99 mg/dL (0.55-1.02); EST Glomerular Filtration Rate 61 mL/min (>60); Est Glom Filt Rate - Afr Amer 73 mL/min (>60); Estimated Creatinine Clearance 56.63 ml/min; Globulin 4.2 g/dL (2.2-4.2); Glucose 274 mg/dL (74-106); Lipase 20 U/L (13-75); Potassium 3.7 mmol/L (3.5-5.1); Protein, Total 6.5 g/dL (6.4-8.2); Sodium Level 133 mmol/L (136-145); Troponin-I HS (w/2H Reflex) 15 pg/mL (3.0-54.0)
[2024-02-22 14:49] LABS: BNP,B-Type NATRIURETIC PEPTIDE 100.3 pg/mL (0-100)
[2024-02-22] MEDS: Metoclopramide 10 MG/2 ML Vial 2.5 MG IV (14:51)
[2024-02-22 15:08] LABS: Lymphocyte 26 % (19-41); Monocyte 3 % (0-10); Neutrophil-Band 2 % (0-5); Neutrophil-Segmented 69 % (47-70); Total Cells Counted 100 (MANUAL DIFF)
[2024-02-22 15:10] LABS: Absolute Neutrophil Count 1.9 X10^3/uL (2.0-7.7); Platelet Estimate ADEQUATE (ADEQ)
[2024-02-22 15:11] LABS: Acanthocytes RARE; Anisocytosis 1+; Ovalocyte 1+; Schistocytes RARE
[2024-02-22] MEDS: 0.9% Normal Saline (1000mL) 1,000 ML 999 ML IV ×2 (15:48→21:58)
[2024-02-22 16:04] LABS: Reflex Troponin-HS? (from REC) Y
[2024-02-22 16:40] LABS: Magnesium 2.6 mg/dL (1.6-2.6); Thyroid Stim Hormone (TSH) 0.694 uIU/mL (0.358-3.740)
[2024-02-22] MEDS: Metoprolol Tartrate 25 MG Tablet PO (16:43)
[2024-02-22 17:20] LABS: Troponin-I HS 25 pg/mL (3.0-54.0)
[2024-02-22 18:04] LABS: Reflex Lactate? Y
[2024-02-22 19:39] LABS: Lactic Acid 1.8 mmol/L (0.4-1.9)
[2024-02-22] MEDS: Ondansetron 4 MG/2 ML Vial IV (22:19)
[2024-02-22 23:46] LABS: Mucous, Urine 0 SEEN /hpf (<or=2+)
[2024-02-22 23:48] LABS: Color, Urine Amber (Yellow); Glucose, Dipstick Normal (Normal); Ketone-Dipstick 5 mg/dl (Negative); Leukocyte Esterase-Dipstick 25 /ul (Negative); Nitrite-Dipstick Negative (Negative); Occult Blood-Urine 10 /ul (Negative); Protein-Dipstick 30 mg/dl (Negative); Urine Clarity Clear (Clear); Urine Urobilinogen 1 mg/dl (Normal)
[2024-02-22 23:56] LABS: Bacteria 3+ /hpf (None Seen); Red Blood Cells-Urine 0-5 SEEN /hpf (0-5); Squamous Epithelial Cells - UA 0-5 SEEN /hpf (5-10); Urine Bilirubin Dipstick 1 mg/dL (Negative); White Blood Cells 5-10 SEEN /hpf (0-5)
[2024-02-23 00:04] VITALS: BP 106/88; PULSE 102; RESP 30; TEMP 36.3; O2SAT 90; BMI 33.3
[2024-02-23] MEDS: Pantoprazole Sodium 40 MG in 0.9% Normal Saline (100mL MB+) 100 ML 330 MG IV (00:25)
[2024-02-23 00:55] VITALS: BMI 32.9
[2024-02-23 00:58] VITALS: PULSE 99; RESP 21; O2SAT 95
[2024-02-23 02:00] VITALS: BP 99/58; PULSE 102; RESP 23; TEMP 36.3; O2SAT 93
[2024-02-23] MEDS: Metoclopramide 10 MG/2 ML Vial 2.5 MG IV (02:44)
[2024-02-23 03:00] VITALS: BP 107/73; PULSE 106; RESP 20; O2SAT 97
[2024-02-23 04:00] VITALS: BP 95/66; PULSE 101; RESP 21; O2SAT 97
[2024-02-23 05:00] VITALS: BP 113/68; PULSE 111; RESP 23; O2SAT 95
[2024-02-23 15:13] LABS: Pathologist Review Reviewed
== END 2024-02-23 05:44 | disposition short-term general hospital (02) | DRG 378 ==
LOC: ED 16:09 → ICU 22:48
PROVIDERS: Admitting Provider Hospitalist; Emergency Provider Emergency Medicine; PCP Internal Medicine; Referring Provider Emergency Medicine; Visit Provider Hospitalist
DX: K92.2 Gastrointestinal hemorrhage, unspecified (principal); C25.9 Malignant neoplasm of pancreas, unspecified; C78.7 Secondary malignant neoplasm of liver and intrahepatic bile duct; D50.9 Iron deficiency anemia, unspecified; E03.9 Hypothyroidism, unspecified; E11.9 Type 2 diabetes mellitus without complications; I10 Essential (primary) hypertension; F32.A Depression, unspecified; E66.9 Obesity, unspecified; I48.91 Unspecified atrial fibrillation; K21.9 Gastro-esophageal reflux disease without esophagitis; F41.9 Anxiety disorder, unspecified; Z68.32 Body mass index [BMI] 32.0-32.9, adult; Z79.01 Long term (current) use of anticoagulants; Z79.51 Long term (current) use of inhaled steroids; Z79.899 Other long term (current) drug therapy; Z79.84 Long term (current) use of oral hypoglycemic drugs; Z86.718 Personal history of other venous thrombosis and embolism
CPT/HCPCS: 71045; 71275; 74177; 80048; 80076; 81001; 82271; 83605; 83690; 83735; 83880; 84443; 84484; 85025; 85610; 85730; 86850; 86900; 86901; 93005; 99285; J7030; Q9967; A4216; J2405